=== PATIENT | female | born 1960 | race Caucasian/White ===

== ENCOUNTER 2020-06-30 02:56 | Inpatient (IN) | payer MEDICAID, OTHER ==
[~2020-06-30] VITALS: Ht 160 cm; Wt 90.7 kg
[2020-06-30 03:26] LABS: Basophils # (auto) 0.1 10 ^3/uL (0-0.2); Basophils % (auto) 1.3 % (0.0-2.0); Eosinophils # (auto) 0.1 10 ^3/uL (0-0.8); Eosinophils % (auto) 0.8 % (0.0-7.0); Hematocrit 49.2 % (36.0-46.0); Hemoglobin 16.3 g/dL (12.2-16.2); Mean Corpuscular Hemoglobin 32.1 pg (28.0-32.0); Mean Corpuscular Hgb Conc. 33.2 g/dL (32.0-36.0); Mean Corpuscular Volume 96.7 fL (80.0-100.0); Monocytes # (auto) 0.6 10 ^3/uL (0-1.3); Monocytes % (auto) 8.5 % (0.0-12.0); Neutrophils # (auto) 5.6 10 ^3/uL (1.6-8.6); Neutrophils % (auto) 76.4 % (37.0-80.0); Nucleated Red Blood Cells % 0.4 %; Red Blood Cells 5.09 10^6/uL (4.0-5.20); Red Cell Distribution Width 17.3 % (11.8-14.3); White Blood Cell 7.3 10^3/uL (4.4-10.8)
[2020-06-30 03:39] LABS: Albumin 3.1 g/dL (3.4-5.0); BUN/Creatinine Ratio 14.8; Calcium 8.9 mg/dL (8.5-10.1); Potassium 3.2 mmol/L (3.5-5.1)
[2020-06-30 03:43] LABS: Lactic Acid w/Reflex 2.3 mmol/L (0.4-2.0)
[2020-06-30 03:46] LABS: Total Protein 8.4 g/dL (6.4-8.2)
[2020-06-30] MEDS ORDERED: PIPERACILLIN-TAZOB 3.375GM 100 ML IV ONE (04:30)
[2020-06-30] MEDS ORDERED: VANCOMYCIN 1GM/250ML 250 ML IV ONE (04:30)
[2020-06-30] MEDS ORDERED: MORPHINE SULFATE 4 MG/ML SYR/VIAL IV ONE (04:30)
[2020-06-30] MEDS ORDERED: MORPHINE SULFATE 4 MG/ML SYR/VIAL ONE (04:54)
[2020-06-30] MEDS ORDERED: VANCOMYCIN PER PHARMACY 0 MG IV SCH (06:30)
[2020-06-30] MEDS ORDERED: NITROGLYCERIN 0.4 MG SL TAB SL PRN (06:45)
[2020-06-30] MEDS ORDERED: MORPHINE SULFATE INJECTION 2 MG/ML SYRG IV PRN ×2 (06:45→07:30)
[2020-06-30] MEDS ORDERED: ONDANSETRON HCL 4 MG/2 ML VIAL IV PRN (07:30)
[2020-06-30] MEDS ORDERED: HYDROcodone-ACET 5/325MG TAB PO PRN (07:30)
[2020-06-30 07:59] LABS: Basophils # (auto) 0.1 10 ^3/uL (0-0.2); Basophils % (auto) 0.9 % (0.0-2.0); Eosinophils # (auto) 0.1 10 ^3/uL (0-0.8); Hematocrit 46.4 % (36.0-46.0); Hemoglobin 15.5 g/dL (12.2-16.2); Lymphocytes # (auto) 0.8 10 ^3/uL (0.4-5.4); Mean Corpuscular Hgb Conc. 33.4 g/dL (32.0-36.0); Mean Corpuscular Volume 95.8 fL (80.0-100.0); Monocytes # (auto) 0.5 10 ^3/uL (0-1.3); Monocytes % (auto) 8.4 % (0.0-12.0); Neutrophils % (auto) 76.7 % (37.0-80.0); Nucleated Red Blood Cells % 0.1 %; Red Blood Cells 4.84 10^6/uL (4.0-5.20); White Blood Cell 6.5 10^3/uL (4.4-10.8)
[2020-06-30] MEDS ORDERED: ALBU108A5 IN (09:57)
[2020-06-30] MEDS ORDERED: LISI-716 PO (09:57)
[2020-06-30] MEDS ORDERED: ASPI-325 PO (09:57)
[2020-06-30] MEDS ORDERED: FURO40TA4 PO (09:57)
[2020-06-30] MEDS ORDERED: METO-289 PO (09:57)
[2020-06-30] MEDS ORDERED: ATOR-47 PO (09:57)
[2020-06-30] MEDS ORDERED: SILD20TA2 PO (09:57)
[2020-06-30] MEDS ORDERED: HYDROcodone-ACET 5/325MG TAB PO ONE (10:00)
[2020-06-30] MEDS ORDERED: ONDANSETRON HCL 4 MG/2 ML VIAL IV ONE (10:00)
[2020-06-30] MEDS ORDERED: MORPHINE SULFATE INJECTION 2 MG/ML SYRG IV ONE (12:00)
[2020-06-30] MEDS ORDERED: ACETAMINOPHEN 325 MG TAB PO ONE (12:00)
[2020-06-30] MEDS ORDERED: PIPERACILLIN-TAZOB 3.375GM 100 ML IV SCH (12:00)
[2020-06-30] MEDS ORDERED: CEPH-322 PO (14:57)
[2020-06-30] MEDS ORDERED: HYDR-4902 PO (14:57)
[2020-06-30 17:10] VITALS: BP 154/93
[2020-07-10] MEDS ORDERED: CEPH250C28 PO (15:10)
== END 2020-06-30 17:25 | disposition home or self-care (01) | DRG 383 ==
LOC: ER 02:56 → OVERFLOW 02:57 → EAST 09:49
PROVIDERS: ADMIT Internal Medicine; ATTEND Internal Medicine
DX: L03.116 Cellulitis of left lower limb (principal); L03.115 Cellulitis of right lower limb; E78.5 Hyperlipidemia, unspecified; I11.0 Hypertensive heart disease with heart failure; I50.9 Heart failure, unspecified; I27.20 Pulmonary hypertension, unspecified; I25.10 Atherosclerotic heart disease of native coronary artery without angina pectoris; E87.6 Hypokalemia; J44.9 Chronic obstructive pulmonary disease, unspecified; Z80.41 Family history of malignant neoplasm of ovary; Z95.5 Presence of coronary angioplasty implant and graft; Z20.822 Contact with and (suspected) exposure to COVID-19; Z91.040 Latex allergy status; Z91.018 Allergy to other foods; I87.2 Venous insufficiency (chronic) (peripheral); L97.219 Non-pressure chronic ulcer of right calf with unspecified severity; I83.012 Varicose veins of right lower extremity with ulcer of calf
CPT/HCPCS: 36415; 73590; 80053; 83605; 85025; 85652; 87040; 87081; 87426; 93970; 96365; 96366; 96368; G0378; J2543

== ENCOUNTER 2020-07-10 05:11 | Inpatient (IN) | payer MEDICAID ==
[~2020-07-10] VITALS: Ht 160 cm; Wt 99.0 kg
[~2020-07-10 05:11] MED LIST: ALBU108A5 IN; ASPI-325 PO; ATOR-47 PO; CEPH250C PO; FURO40TA4 PO; HYDR-4902 PO; LISI-648 PO; METO-169 PO; SILD20TA2 PO
[2020-07-10 06:50] LABS: Basophils # (auto) 0.1 10 ^3/uL (0-0.2); Basophils % (auto) 1.4 % (0.0-2.0); Eosinophils # (auto) 0.1 10 ^3/uL (0-0.8); Eosinophils % (auto) 1.2 % (0.0-7.0); Hematocrit 48.7 % (36.0-46.0); Hemoglobin 16.3 g/dL (12.2-16.2); Lymphocytes % (auto) 15.3 % (10.0-50.0); Mean Corpuscular Hemoglobin 32.6 pg (28.0-32.0); Mean Corpuscular Hgb Conc. 33.6 g/dL (32.0-36.0); Mean Corpuscular Volume 97.2 fL (80.0-100.0); Monocytes # (auto) 0.5 10 ^3/uL (0-1.3); Monocytes % (auto) 7.2 % (0.0-12.0); Neutrophils # (auto) 4.8 10 ^3/uL (1.6-8.6); Neutrophils % (auto) 74.9 % (37.0-80.0); Nucleated Red Blood Cells % 0.1 %; Platelet Count (auto) 150 10^3/uL (140-450); Red Blood Cells 5.01 10^6/uL (4.0-5.20); Red Cell Distribution Width 18.3 % (11.8-14.3); White Blood Cell 6.5 10^3/uL (4.4-10.8)
[2020-07-10 07:04] LABS: Albumin 3.1 g/dL (3.4-5.0); Calcium 9.9 mg/dL (8.5-10.1); Potassium 3.5 mmol/L (3.5-5.1)
[2020-07-10 07:13] LABS: BUN/Creatinine Ratio 16.7; Bilirubin, Total 2.1 mg/dL (0.2-1.0); Total Protein 8.3 g/dL (6.4-8.2)
[2020-07-10] MEDS ORDERED: FUROSEMIDE 40 MG/4 ML VIAL IV ONE (07:15)
[2020-07-10 08:52] LABS: Urine Bacteria NONE SEEN /hpf (None Seen); Urine Blood TRACE /uL (Negative); Urine Hyaline Cast MOD /lpf (0 - 2); Urine Specific Gravity 1.017 (1.001-1.035); Urine WBC 3 /hpf (0 - 5)
[2020-07-10] MEDS ORDERED: cefTRIAXone 1GM/50ML D5W 50 ML IV ONE (10:00)
[2020-07-10] MEDS ORDERED: METOPROLOL SUCCINATE XL 50 MG TAB PO ONE (10:00)
[2020-07-10] MEDS ORDERED: ALUM & MAG HYDROX-SIMETH LIQ(MAALOX) 30 ML PO PRN (10:45)
[2020-07-10] MEDS ORDERED: NITROGLYCERIN 0.4 MG SL TAB SL PRN (10:45)
[2020-07-10] MEDS ORDERED: DOCUSATE SOD 100 MG CAP PO PRN (10:45)
[2020-07-10] MEDS ORDERED: ACETAMINOPHEN 325 MG TAB PO PRN (10:45)
[2020-07-10] MEDS ORDERED: POTASSIUM CHL 20 Meq TABLET PO ONE ×2 (10:45→11:15)
[2020-07-10] MEDS ORDERED: HYDROcodone-ACET 5/325MG TAB PO ONE (10:45)
[2020-07-10] MEDS ORDERED: MORPHINE SULF INJ 2 MG/ML SYRINGE 1ML IV PRN (10:45)
[2020-07-10] MEDS ORDERED: ASPirin-EC 81 mg tab PO ONE (11:00)
[2020-07-10] MEDS ORDERED: SILDENAFIL CITRATE 20 MG TAB PO ONE (11:00)
[2020-07-10] MEDS ORDERED: LISINOPRIL 10 MG TAB PO ONE (11:00)
[2020-07-10] MEDS ORDERED: BUMETANIDE 2.5mg/10ml (0.25 mg/ml) INJ IV ONE (11:00)
[2020-07-10] MEDS: MORPHINE SULF INJ 2 MG/ML SYRINGE 1ML IV PRN ×2 (11:44→16:22)
[2020-07-10] MEDS: METOCLOPRAMIDE HCL 5MG/ml INJ 2ml VIAL IV PRN (11:44)
[2020-07-10] MEDS: LEVALBUTEROL HCL 1.25 MG/3 ML NEB NEB SCH ×3 (12:08→23:48)
[2020-07-10 12:16] VITALS: BP 132/81
[2020-07-10 12:24] LABS: Amphetamine Screen, Urine POSITIVE (NEGATIVE); Barbiturate Scree,Urine NEGATIVE (NEGATIVE); Benzodiazephine Screen, Urine POSITIVE (NEGATIVE); Cannabinoid Screen, Urine NEGATIVE (NEGATIVE); Cocaine Screen, Urine NEGATIVE (NEGATIVE); Opiate Scree,Urine NEGATIVE (NEGATIVE); Phencyclidine Screen, Urine NEGATIVE (NEGATIVE)
[2020-07-10] MEDS ORDERED: CEPH250C2 PO (15:10)
[2020-07-10] MEDS: HYDROcodone-ACET 5/325MG TAB PO PRN ×2 (15:45→21:05)
[2020-07-10] MEDS: BUMETANIDE 2.5mg/10ml (0.25 mg/ml) INJ IV SCH (18:18)
[2020-07-10] MEDS: ATORVASTATIN 20 MG TAB PO SCH (18:18)
[2020-07-10 22:00] VITALS: BP 123/88
[2020-07-10] MEDS: POTASSIUM CHL 20 Meq TABLET PO SCH (22:00)
[2020-07-10] MEDS: SILDENAFIL CITRATE 20 MG TAB PO SCH (22:00)
[2020-07-10] MEDS ORDERED: POTA1080 PO (22:48)
[2020-07-11] MEDS: TEMAZEPAM 15 MG CAP PO PRN ×2 (00:13→21:48)
[2020-07-11 05:00] VITALS: BP 111/71
[2020-07-11 05:42] LABS: Basophils # (auto) 0.1 10 ^3/uL (0-0.2); Basophils % (auto) 1.2 % (0.0-2.0); Eosinophils # (auto) 0.1 10 ^3/uL (0-0.8); Hematocrit 44.6 % (36.0-46.0); Hemoglobin 14.8 g/dL (12.2-16.2); Lymphocytes # (auto) 0.9 10 ^3/uL (0.4-5.4); Lymphocytes % (auto) 17.2 % (10.0-50.0); Mean Corpuscular Hemoglobin 32.8 pg (28.0-32.0); Mean Corpuscular Hgb Conc. 33.2 g/dL (32.0-36.0); Mean Corpuscular Volume 98.8 fL (80.0-100.0); Monocytes # (auto) 0.5 10 ^3/uL (0-1.3); Monocytes % (auto) 8.8 % (0.0-12.0); Neutrophils # (auto) 3.8 10 ^3/uL (1.6-8.6); Neutrophils % (auto) 71.8 % (37.0-80.0); Nucleated Red Blood Cells % 0.1 %; Platelet Count (auto) 151 10^3/uL (140-450); Red Blood Cells 4.52 10^6/uL (4.0-5.20); Red Cell Distribution Width 18.4 % (11.8-14.3); White Blood Cell 5.3 10^3/uL (4.4-10.8)
[2020-07-11] MEDS: BUMETANIDE 2.5mg/10ml (0.25 mg/ml) INJ IV SCH ×2 (06:00→19:19)
[2020-07-11 06:10] LABS: Calcium 8.9 mg/dL (8.5-10.1); Potassium 4.1 mmol/L (3.5-5.1)
[2020-07-11] MEDS: HYDROcodone-ACET 5/325MG TAB PO PRN ×3 (07:17→23:30)
[2020-07-11] MEDS: LEVALBUTEROL HCL 1.25 MG/3 ML NEB NEB SCH ×3 (07:34→19:07)
[2020-07-11] MEDS: MORPHINE SULF INJ 2 MG/ML SYRINGE 1ML IV PRN ×4 (08:45→23:58)
[2020-07-11] MEDS: METOCLOPRAMIDE HCL 5MG/ml INJ 2ml VIAL IV PRN (08:45)
[2020-07-11 09:19] VITALS: BP 129/76
[2020-07-11] MEDS ORDERED: LISINOPRIL 10 MG TAB PO SCH (10:00)
[2020-07-11] MEDS: POTASSIUM CHL 20 Meq TABLET PO SCH ×2 (10:03→21:49)
[2020-07-11] MEDS: SILDENAFIL CITRATE 20 MG TAB PO SCH ×3 (10:04→22:00)
[2020-07-11] MEDS: ASPirin-EC 81 mg tab PO SCH (10:05)
[2020-07-11] MEDS: cefTRIAXone 1GM/50ML D5W 50 ML IV SCH (10:06)
[2020-07-11 13:00] VITALS: BP 115/75
[2020-07-11] MEDS ORDERED: FURO40TA4 PO (15:02)
[2020-07-11] MEDS ORDERED: HYDR-4902 PO (15:02)
[2020-07-11] MEDS ORDERED: POTA10TA51 PO (15:02)
[2020-07-11 16:30] VITALS: BP 116/75
[2020-07-11] MEDS: ATORVASTATIN 20 MG TAB PO SCH (19:16)
[2020-07-11 22:00] VITALS: BP_SYST 103; BP_SYST 134; BP_DIAS 68; BP_DIAS 87
[2020-07-11] MEDS: MUPIROCIN 2% OINT 15gm or 22gm EACHNOSTRI SCH (23:58)
[2020-07-12] MEDS: LEVALBUTEROL HCL 1.25 MG/3 ML NEB NEB SCH ×3 (00:02→14:35)
[2020-07-12] MEDS ORDERED: diphenhdrAMINE HCL 25 MG CAP PO ONE ×2 (01:15→02:30)
[2020-07-12 05:24] VITALS: BP 137/84
[2020-07-12] MEDS: BUMETANIDE 2.5mg/10ml (0.25 mg/ml) INJ IV SCH (06:00)
[2020-07-12] MEDS: SILDENAFIL CITRATE 20 MG TAB PO SCH ×2 (06:00→15:11)
[2020-07-12 06:22] LABS: Basophils # (auto) 0.1 10 ^3/uL (0-0.2); Eosinophils # (auto) 0.1 10 ^3/uL (0-0.8); Eosinophils % (auto) 1.1 % (0.0-7.0); Hematocrit 43.3 % (36.0-46.0); Hemoglobin 14.5 g/dL (12.2-16.2); Lymphocytes # (auto) 0.9 10 ^3/uL (0.4-5.4); Lymphocytes % (auto) 18.2 % (10.0-50.0); Mean Corpuscular Hemoglobin 32.8 pg (28.0-32.0); Mean Corpuscular Hgb Conc. 33.3 g/dL (32.0-36.0); Mean Corpuscular Volume 98.5 fL (80.0-100.0); Monocytes # (auto) 0.5 10 ^3/uL (0-1.3); Monocytes % (auto) 10.3 % (0.0-12.0); Neutrophils # (auto) 3.5 10 ^3/uL (1.6-8.6); Neutrophils % (auto) 69.4 % (37.0-80.0); Nucleated Red Blood Cells % 0.4 %; Platelet Count (auto) 145 10^3/uL (140-450); Red Cell Distribution Width 18.6 % (11.8-14.3)
[2020-07-12 06:35] LABS: BUN/Creatinine Ratio 22.6; Potassium 4.3 mmol/L (3.5-5.1)
[2020-07-12] MEDS: cefTRIAXone 1GM/50ML D5W 50 ML IV SCH (08:26)
[2020-07-12 09:00] VITALS: BP 102/66
[2020-07-12] MEDS: ASPirin-EC 81 mg tab PO SCH (09:09)
[2020-07-12] MEDS: POTASSIUM CHL 20 Meq TABLET PO SCH (09:12)
[2020-07-12] MEDS: MUPIROCIN 2% OINT 15gm or 22gm EACHNOSTRI SCH (09:12)
[2020-07-12] MEDS ORDERED: METOPROLOL SUCCINATE XL 50 MG TAB PO SCH (10:00)
[2020-07-12 13:00] VITALS: BP 116/84
[2020-07-12] MEDS: MORPHINE SULF INJ 2 MG/ML SYRINGE 1ML IV PRN (15:11)
[2020-07-12 17:00] VITALS: BP 111/94
[2020-07-12 17:20] VITALS: BP 111/94
[2020-07-12] MEDS: HYDROcodone-ACET 5/325MG TAB PO PRN (20:06)
== END 2020-07-12 20:16 | disposition home health service (06) | DRG 133 ==
LOC: ER 05:11 → TELE 05:12 → TELE-WESTW 19:57
PROVIDERS: ADMIT Hospitalist; ATTEND Hospitalist
DX: J96.21 Acute and chronic respiratory failure with hypoxia (principal); I11.0 Hypertensive heart disease with heart failure; J44.1 Chronic obstructive pulmonary disease with (acute) exacerbation; I50.33 Acute on chronic diastolic (congestive) heart failure; I87.8 Other specified disorders of veins; E44.1 Mild protein-calorie malnutrition; I27.20 Pulmonary hypertension, unspecified; Z99.81 Dependence on supplemental oxygen; E66.01 Morbid (severe) obesity due to excess calories; Z20.822 Contact with and (suspected) exposure to COVID-19; I25.10 Atherosclerotic heart disease of native coronary artery without angina pectoris; I08.0 Rheumatic disorders of both mitral and aortic valves; L03.115 Cellulitis of right lower limb; L97.919 Non-pressure chronic ulcer of unspecified part of right lower leg with unspecified severity; L97.929 Non-pressure chronic ulcer of unspecified part of left lower leg with unspecified severity; Z68.39 Body mass index [BMI] 39.0-39.9, adult; Z80.41 Family history of malignant neoplasm of ovary; Z82.49 Family history of ischemic heart disease and other diseases of the circulatory system; Z95.5 Presence of coronary angioplasty implant and graft; Z90.49 Acquired absence of other specified parts of digestive tract; Z91.040 Latex allergy status; Z91.018 Allergy to other foods
CPT/HCPCS: 36415; 36600; 71045; 80048; 80053; 80307; 81001; 82805; 83605; 83880; 84484; 85025; 87040; 87077; 87081; 87186; 87205; 87426; 93306; 94640; 96365; 96375; G0378; J0696

== ENCOUNTER 2020-09-19 16:27 | Inpatient (IN) | payer MEDICAID ==
[~2020-09-19] VITALS: Ht 167.6 cm; Wt 103.4 kg
[~2020-09-19 16:27] MED LIST changes: -ATOR-47 PO; +CEPH-322 PO; -CEPH250C PO; -LISI-648 PO; +LISI-716 PO; -METO-169 PO; +METO-289 PO; +POTA10TA51 PO
[2020-09-19] MEDS ORDERED: IPRATROPIUM BROM 0.5 MG/2.5ML INH SOL NEB ONE (16:45)
[2020-09-19] MEDS ORDERED: methylPREDNISolone SOD SUCC 125 MG/2 ML VL IV ONE (16:45)
[2020-09-19] MEDS ORDERED: PIPERACILLIN-TAZOB 3.375GM 100 ML IV ONE (16:45)
[2020-09-19] MEDS ORDERED: FUROSEMIDE 40 MG/4 ML VIAL IV ONE (16:45)
[2020-09-19] MEDS ORDERED: ALBUTEROL SULF 2.5 MG/0.5ML(0.5%) NEB SOLN NEB ONE (16:45)
[2020-09-19 17:26] LABS: Basophils # (auto) 0 10 ^3/uL (0-0.2); Basophils % (auto) 0.7 % (0.0-2.0); Eosinophils # (auto) 0 10 ^3/uL (0-0.8); Eosinophils % (auto) 0.1 % (0.0-7.0); Hematocrit 48.1 % (36.0-46.0); Hemoglobin 16.3 g/dL (12.2-16.2); Lymphocytes # (auto) 0.3 10 ^3/uL (0.4-5.4); Lymphocytes % (auto) 6.1 % (10.0-50.0); Mean Corpuscular Hemoglobin 33.6 pg (28.0-32.0); Mean Corpuscular Hgb Conc. 33.9 g/dL (32.0-36.0); Mean Corpuscular Volume 99.1 fL (80.0-100.0); Monocytes # (auto) 0.3 10 ^3/uL (0-1.3); Monocytes % (auto) 4.9 % (0.0-12.0); Neutrophils # (auto) 4.6 10 ^3/uL (1.6-8.6); Neutrophils % (auto) 88.2 % (37.0-80.0); Nucleated Red Blood Cells % 0.3 %; Platelet Count (auto) 74 10^3/uL (140-450); Red Blood Cells 4.86 10^6/uL (4.0-5.20); Red Cell Distribution Width 17.2 % (11.8-14.3); White Blood Cell 5.3 10^3/uL (4.4-10.8)
[2020-09-19 17:34] LABS: Albumin 2.6 g/dL (3.4-5.0); BUN/Creatinine Ratio 19.3; Calcium 8.5 mg/dL (8.5-10.1); Potassium 3.2 mmol/L (3.5-5.1)
[2020-09-19 17:39] LABS: Lactic Acid w/Reflex 3.7 mmol/L (0.4-2.0)
[2020-09-19 17:41] LABS: Bilirubin, Total 4.3 mg/dL (0.2-1.0); Total Protein 7.2 g/dL (6.4-8.2)
[2020-09-19 17:47] LABS: INR 1.27 (0.9-1.15)
[2020-09-19 17:48] LABS: Urine Bacteria MANY /hpf (None Seen); Urine Blood Negative /uL (Negative); Urine Specific Gravity 1.019 (1.001-1.035); Urine WBC 3 /hpf (0 - 5)
[2020-09-19] MEDS ORDERED: NITROGLYCERIN 0.4 MG SL TAB SL PRN (21:30)
[2020-09-19] MEDS ORDERED: DEXTROSE (50%) 50ML SYRG IV PRN (21:30)
[2020-09-19] MEDS ORDERED: levoFLOXacin 500MG 100 ML IV ONE (21:30)
[2020-09-19] MEDS ORDERED: MORPHINE SULF INJ 2 MG/ML SYRINGE 1ML IV PRN (21:30)
[2020-09-19] MEDS ORDERED: FUROSEMIDE 40 MG/4 ML VIAL IV SCH (22:00)
[2020-09-19] MEDS: methylPREDNISolone SOD SUCC 40 MG/ML VL IV SCH (23:07)
[2020-09-19] MEDS: ACCU-CHEK COMFORT CURVE STRIP VI SCH (23:07)
[2020-09-19] MEDS: InsuLIN REG 1unit/0.01ml Soln (100units/ml) SC SCH (23:07)
[2020-09-19] MEDS: ATORVASTATIN 20 MG TAB PO SCH (23:07)
[2020-09-20] MEDS: FUROSEMIDE 40 MG/4 ML VIAL IV SCH ×3 (00:29→18:15)
[2020-09-20] MEDS: diphenhdrAMINE HCL 25 MG CAP PO PRN ×3 (02:11→23:54)
[2020-09-20] MEDS: MORPHINE SULF INJ 2 MG/ML SYRINGE 1ML IV PRN ×4 (02:11→19:51)
[2020-09-20] MEDS ORDERED: GLIP5TAB12 PO (03:25)
[2020-09-20] MEDS ORDERED: ATOR80TA PO (03:25)
[2020-09-20 05:00] VITALS: BP 146/73
[2020-09-20] MEDS: InsuLIN REG 1unit/0.01ml Soln (100units/ml) SC SCH ×4 (06:23→22:00)
[2020-09-20] MEDS: ACCU-CHEK COMFORT CURVE STRIP VI SCH ×4 (06:24→21:56)
[2020-09-20 06:54] LABS: Basophils # (auto) 0 10 ^3/uL (0-0.2); Basophils % (auto) 0.1 % (0.0-2.0); Eosinophils # (auto) 0 10 ^3/uL (0-0.8); Hematocrit 48.1 % (36.0-46.0); Hemoglobin 16.6 g/dL (12.2-16.2); Lymphocytes # (auto) 0.3 10 ^3/uL (0.4-5.4); Lymphocytes % (auto) 3.1 % (10.0-50.0); Mean Corpuscular Hemoglobin 33.9 pg (28.0-32.0); Mean Corpuscular Hgb Conc. 34.6 g/dL (32.0-36.0); Mean Corpuscular Volume 98.1 fL (80.0-100.0); Monocytes # (auto) 0.5 10 ^3/uL (0-1.3); Monocytes % (auto) 4.5 % (0.0-12.0); Neutrophils # (auto) 9.4 10 ^3/uL (1.6-8.6); Neutrophils % (auto) 92.3 % (37.0-80.0); Nucleated Red Blood Cells % 0.2 %; Platelet Count (auto) 143 10^3/uL (140-450); White Blood Cell 10.2 10^3/uL (4.4-10.8)
[2020-09-20 07:04] LABS: Potassium 3.2 mmol/L (3.5-5.1)
[2020-09-20 07:09] LABS: Calcium 9.2 mg/dL (8.5-10.1)
[2020-09-20 08:26] VITALS: BP 146/73
[2020-09-20] MEDS: levoFLOXacin 500MG 100 ML IV SCH (08:35)
[2020-09-20] MEDS: ASPirin-EC 81 mg tab PO SCH (08:35)
[2020-09-20] MEDS: LISINOPRIL 10 MG TAB PO SCH (08:36)
[2020-09-20] MEDS: METOPROLOL SUCCINATE XL 50 MG TAB PO SCH (08:37)
[2020-09-20] MEDS: SILDENAFIL CITRATE 20 MG TAB PO SCH ×3 (08:37→19:52)
[2020-09-20] MEDS: methylPREDNISolone SOD SUCC 40 MG/ML VL IV SCH ×3 (08:38→21:55)
[2020-09-20 09:00] VITALS: BP 133/80
[2020-09-20] MEDS: HYDROcodone-ACET 5/325MG TAB PO PRN ×2 (09:58→23:54)
[2020-09-20] MEDS ORDERED: POTASSIUM CHL 10 Meq TABLET PO SCH (10:00)
[2020-09-20] MEDS ORDERED: POTASSIUM EFFERVESENT TAB 25 MEQ PO ONE (11:00)
[2020-09-20] MEDS: BUDESONIDE (INHALATION) 0.5 MG/2 ML NEB NEB SCH ×2 (11:18→18:19)
[2020-09-20] MEDS: ALBUTEROL SULF 2.5 MG/0.5ML(0.5%) NEB SOLN NEB SCH ×2 (11:18→18:19)
[2020-09-20] MEDS: IPRATROPIUM BROM 0.5 MG/2.5ML INH SOL NEB SCH ×2 (11:18→18:19)
[2020-09-20 12:49] VITALS: BP 138/78
[2020-09-20 17:00] VITALS: BP 121/74
[2020-09-20] MEDS: ATORVASTATIN 20 MG TAB PO SCH (21:56)
[2020-09-20] MEDS: POTASSIUM CHL 10 Meq TABLET PO SCH (21:56)
[2020-09-20 22:28] VITALS: BP 105/64
[2020-09-21] MEDS: MORPHINE SULF INJ 2 MG/ML SYRINGE 1ML IV PRN ×3 (01:09→20:44)
[2020-09-21 05:30] VITALS: BP 104/62
[2020-09-21] MEDS: IPRATROPIUM BROM 0.5 MG/2.5ML INH SOL NEB SCH ×3 (06:03→19:37)
[2020-09-21] MEDS: methylPREDNISolone SOD SUCC 40 MG/ML VL IV SCH ×3 (06:03→21:44)
[2020-09-21] MEDS: BUDESONIDE (INHALATION) 0.5 MG/2 ML NEB NEB SCH ×2 (06:03→19:37)
[2020-09-21] MEDS: FUROSEMIDE 40 MG/4 ML VIAL IV SCH ×2 (06:03→18:08)
[2020-09-21] MEDS: ALBUTEROL SULF 2.5 MG/0.5ML(0.5%) NEB SOLN NEB SCH ×3 (06:03→19:37)
[2020-09-21] MEDS: ACCU-CHEK COMFORT CURVE STRIP VI SCH ×4 (06:04→21:45)
[2020-09-21] MEDS: InsuLIN REG 1unit/0.01ml Soln (100units/ml) SC SCH ×4 (06:20→22:43)
[2020-09-21 06:37] LABS: BUN/Creatinine Ratio 33.7; Calcium 8.6 mg/dL (8.5-10.1); Potassium 3.7 mmol/L (3.5-5.1)
[2020-09-21 08:00] VITALS: BP 106/67
[2020-09-21] MEDS: SILDENAFIL CITRATE 20 MG TAB PO SCH ×3 (08:20→20:00)
[2020-09-21 08:25] VITALS: BP 106/61
[2020-09-21] MEDS: diphenhdrAMINE HCL 25 MG CAP PO PRN ×2 (08:51→22:01)
[2020-09-21] MEDS: HYDROcodone-ACET 5/325MG TAB PO PRN ×3 (08:51→22:47)
[2020-09-21] MEDS: ASPirin-EC 81 mg tab PO SCH (10:28)
[2020-09-21] MEDS: POTASSIUM CHL 10 Meq TABLET PO SCH ×2 (10:28→21:44)
[2020-09-21] MEDS: METOPROLOL SUCCINATE XL 50 MG TAB PO SCH (10:28)
[2020-09-21] MEDS: levoFLOXacin 500MG 100 ML IV SCH (10:28)
[2020-09-21] MEDS: LISINOPRIL 10 MG TAB PO SCH (10:29)
[2020-09-21 12:48] VITALS: BP 108/51
[2020-09-21 16:32] VITALS: BP 109/56
[2020-09-21] MEDS: ATORVASTATIN 20 MG TAB PO SCH (21:45)
[2020-09-21 22:56] VITALS: BP 92/60
[2020-09-22] VITALS (8 sets, daily range): BP systolic 91–104; BP diastolic 62–66
[2020-09-22] MEDS: MORPHINE SULF INJ 2 MG/ML SYRINGE 1ML IV PRN (01:26)
[2020-09-22] MEDS: HYDROcodone-ACET 5/325MG TAB PO PRN ×3 (03:37→15:04)
[2020-09-22] MEDS: methylPREDNISolone SOD SUCC 40 MG/ML VL IV SCH ×2 (05:30→14:15)
[2020-09-22] MEDS: FUROSEMIDE 40 MG/4 ML VIAL IV SCH ×2 (05:49→18:00)
[2020-09-22] MEDS: diphenhdrAMINE HCL 25 MG CAP PO PRN ×2 (05:55→15:05)
[2020-09-22] MEDS: ACCU-CHEK COMFORT CURVE STRIP VI SCH ×3 (05:56→17:55)
[2020-09-22] MEDS: InsuLIN REG 1unit/0.01ml Soln (100units/ml) SC SCH ×3 (06:26→17:00)
[2020-09-22] MEDS: BUDESONIDE (INHALATION) 0.5 MG/2 ML NEB NEB SCH ×2 (06:53→19:11)
[2020-09-22] MEDS: ALBUTEROL SULF 2.5 MG/0.5ML(0.5%) NEB SOLN NEB SCH ×3 (06:53→19:11)
[2020-09-22] MEDS: IPRATROPIUM BROM 0.5 MG/2.5ML INH SOL NEB SCH ×3 (06:53→19:11)
[2020-09-22] MEDS: SILDENAFIL CITRATE 20 MG TAB PO SCH ×2 (07:55→14:15)
[2020-09-22] MEDS: POTASSIUM CHL 10 Meq TABLET PO SCH (11:41)
[2020-09-22] MEDS: levoFLOXacin 500MG 100 ML IV SCH (11:41)
[2020-09-22] MEDS: ASPirin-EC 81 mg tab PO SCH (11:41)
[2020-09-22] MEDS: METOPROLOL SUCCINATE XL 50 MG TAB PO SCH (11:42)
[2020-09-22] MEDS: LISINOPRIL 10 MG TAB PO SCH (11:43)
[2020-09-22] MEDS ORDERED: FURO40TA4 PO (13:59)
[2020-09-22] MEDS ORDERED: HYDR-4902 PO (13:59)
[2020-09-22] MEDS ORDERED: AMOX500T86 PO (13:59)
== END 2020-09-22 19:26 | disposition home or self-care (01) | DRG 140 ==
LOC: ER 16:27 → EDBD 16:27 → OVERFLOW 21:17 → EAST 22:09
PROVIDERS: ADMIT Internal Medicine; ATTEND Internal Medicine
DX: J44.1 Chronic obstructive pulmonary disease with (acute) exacerbation (principal); I50.33 Acute on chronic diastolic (congestive) heart failure; I27.20 Pulmonary hypertension, unspecified; E11.622 Type 2 diabetes mellitus with other skin ulcer; I11.0 Hypertensive heart disease with heart failure; Z68.36 Body mass index [BMI] 36.0-36.9, adult; E66.9 Obesity, unspecified; E87.6 Hypokalemia; F17.210 Nicotine dependence, cigarettes, uncomplicated; I25.10 Atherosclerotic heart disease of native coronary artery without angina pectoris; I87.8 Other specified disorders of veins; J98.11 Atelectasis; Z20.822 Contact with and (suspected) exposure to COVID-19; L03.119 Cellulitis of unspecified part of limb; L97.309 Non-pressure chronic ulcer of unspecified ankle with unspecified severity; Z80.41 Family history of malignant neoplasm of ovary; Z82.49 Family history of ischemic heart disease and other diseases of the circulatory system; Z82.5 Family history of asthma and other chronic lower respiratory diseases; Z85.43 Personal history of malignant neoplasm of ovary; Z98.61 Coronary angioplasty status; Z99.81 Dependence on supplemental oxygen; Z90.49 Acquired absence of other specified parts of digestive tract; Z91.040 Latex allergy status; Z91.018 Allergy to other foods
CPT/HCPCS: 36415; 36600; 71045; 74176; 80048; 80053; 81001; 82805; 82962; 83605; 83880; 84484; 85025; 85379; 85610; 85730; 87040; 87076; 87077; 87426; 93005; 93970; 94640; 96365; 96366; 96375; G0378; J1815; J1956; J2543

== ENCOUNTER 2020-09-29 05:51 | Emergency (ER) | payer MEDICAID ==
[~2020-09-29] VITALS: Ht 167.6 cm; Wt 113.4 kg
[~2020-09-29 05:51] MED LIST changes: -ALBU108A5 IN; +AMOX500T86 PO; +ATOR80TA PO; -CEPH-322 PO; +GLIP5TAB12 PO; -POTA10TA51 PO
[2020-09-29 07:28] LABS: Hemoglobin 16.2 g/dL (12.2-16.2); Mean Corpuscular Hemoglobin 33.3 pg (28.0-32.0); Mean Corpuscular Hgb Conc. 34.4 g/dL (32.0-36.0); Mean Corpuscular Volume 96.9 fL (80.0-100.0); Platelet Count (auto) 164 10^3/uL (140-450); Red Blood Cells 4.85 10^6/uL (4.0-5.20); Red Cell Distribution Width 16.4 % (11.8-14.3); White Blood Cell 16.3 10^3/uL (4.4-10.8)
[2020-09-29 07:38] LABS: Albumin 1.9 g/dL (3.4-5.0); Calcium 8.5 mg/dL (8.5-10.1); Potassium 3.3 mmol/L (3.5-5.1)
[2020-09-29 07:40] LABS: Basophils % (manual) 0 (0.0-2.0); Blast Cells 0; Eosinophils % (manual) 0 (0-7); Metamyelocytes % 0; Myelocytes % 0; Promyelocytes % 0; Reactive Lymphocytes 0
[2020-09-29 07:42] LABS: BUN/Creatinine Ratio 33.3; Bilirubin, Total 7.5 mg/dL (0.2-1.0); Total Protein 6.6 g/dL (6.4-8.2)
[2020-09-29 07:59] LABS: Band Neutrophils % (manual) 2; Lymphocytes % (manual) 3 (10.0-50.0); Monocytes % (manual) 2 (0-12)
[2020-09-29] MEDS ORDERED: POTASSIUM EFFERVESENT TAB 25 MEQ PO ONE (08:00)
[2020-09-29] MEDS ORDERED: ALBUMIN 25% 100 ML IV ONE (08:00)
[2020-09-29 09:38] LABS: Urine Amorphous Crystal FEW /hpf (None Seen); Urine Bacteria FEW /hpf (None Seen); Urine Blood Negative /uL (Negative); Urine Specific Gravity 1.016 (1.001-1.035); Urine WBC 2 /hpf (0 - 5)
[2020-09-29] MEDS ORDERED: HYDROmorphone HCL 2 MG/ML VL IV ONE ×2 (12:30→21:30)
[2020-09-29] MEDS ORDERED: PROMETHAZINE HCL 25 MG/ML 1ML IV ONE (12:30)
[2020-09-29] MEDS ORDERED: LACTULOSE 20Gm/30ML SOLN PO ONE (12:45)
[2020-09-29] MEDS ORDERED: SPIRONOLACTONE 25 MG TAB PO ONE (12:45)
[2020-09-29] MEDS ORDERED: FUROSEMIDE 40 MG/4 ML VIAL IV ONE (12:45)
[2020-09-29] MEDS ORDERED: metroNIDAZOLE 500MG/100ML 100 ML IV ONE (12:45)
[2020-09-29] MEDS ORDERED: IOHEXOL 300 MG/ML 100ML BOTTLE IJ ONE (14:08)
[2020-09-29] MEDS ORDERED: VANCOMYCIN HCL 125MG/5ML ORAL SOL PO ONE (15:00)
[2020-09-29] MEDS ORDERED: cefTRIAXone 1GM/50ML D5W 50 ML IV ONE (16:00)
[2020-09-29 22:12] VITALS: BP 119/65
== END 2020-09-29 23:00 | disposition home or self-care (01) ==
LOC: EDBD 05:51 → EDUNIT# 05:51 → ER 05:51
DX: J44.9 Chronic obstructive pulmonary disease, unspecified (principal); K74.69 Other cirrhosis of liver; R60.1 Generalized edema; E87.6 Hypokalemia; D35.00 Benign neoplasm of unspecified adrenal gland; F15.10 Other stimulant abuse, uncomplicated; F19.90 Other psychoactive substance use, unspecified, uncomplicated; E80.6 Other disorders of bilirubin metabolism; E11.22 Type 2 diabetes mellitus with diabetic chronic kidney disease; I13.0 Hypertensive heart and chronic kidney disease with heart failure and stage 1 through stage 4 chronic kidney disease, or unspecified chronic kidney disease; N18.9 Chronic kidney disease, unspecified; I50.813 Acute on chronic right heart failure; E43 Unspecified severe protein-calorie malnutrition; Z68.41 Body mass index [BMI] 40.0-44.9, adult; Z90.49 Acquired absence of other specified parts of digestive tract; Z79.2 Long term (current) use of antibiotics; Z79.82 Long term (current) use of aspirin; Z79.899 Other long term (current) drug therapy; Z91.018 Allergy to other foods; Z91.040 Latex allergy status; Z20.822 Contact with and (suspected) exposure to COVID-19
CPT/HCPCS: 36415; 71045; 74177; 80053; 81001; 85007; 85027; 86850; 86900; 86901; 87426; 93005; 96365; 96367; 96375; 96376; 99291; J0696; J1170; J1940; J2550; J3370; P9047; Q9967; J3490